=== PATIENT | female | born 1955 | race Caucasian/White ===

== ENCOUNTER 2021-03-19 15:36 | Emergency (ER) | payer MEDICARE, MEDICAID ==
[2021-03-19] MEDS ORDERED: Ondansetron 4 MG Tab.DIS PO ONE (15:37)
[2021-03-19] MEDS ORDERED: Sodium Chloride 0.9% 1,000 ML IV ONE (15:53)
[2021-03-19] MEDS ORDERED: Potassium Chloride 20 MEQ Tab.ER PO ONE (15:53)
--- NOTE | 2021-03-19 17:21 | EDM.PDOC ---
ED HPI GENERAL MEDICAL PROBLEM - General Chief Complaint: Gastrointestinal Problem Stated Complaint: nausea vomiting Time Seen by Provider: 03/19/21 15:50 Source of Information: Reports: Patient History Limitations: Reports: No Limitations - History of Present Illness INITIAL COMMENTS - FREE TEXT/NARRATIVE: c/o N pt states she has had Crohn's for years, usually has 2 flares per yr that resolve on their own without meds, gets colonoscopy q3y, next due 09/[address] Goff had N today, no V, no f/c/d, no abd cramping went to walk-in and then sent here for further evaluation N gone after antemetic IM at walk-in, declined additional N meds here pt given 1 liter NS here, said she felt well w/u neg, ESR and CRP unremarkable inc'd WBC/segs of uncertain etiology abd quite soft u/a with stool present, will try to get a 2nd clean catch specimen has a large ventral hernia x 20y, has not wanted repair - Related Data Home Meds: Home Meds Ciprofloxacin [Ciprofloxacin HCl] 250 mg PO BID #14 tab 03/19/21 [Rx] ED ROS GENERAL - Review of Systems Review Of Systems: See Below Constitutional: Reports: No Symptoms HEENT: Reports: No Symptoms Respiratory: Reports: No Symptoms Cardiovascular: Reports: No Symptoms Endocrine: Reports: No Symptoms GI/Abdominal: Reports: Nausea. Denies: Abdominal Pain, Constipation, Diarrhea, Vomiting : Reports: No Symptoms Musculoskeletal: Reports: No Symptoms Skin: Reports: No Symptoms Neurological: Reports: No Symptoms Psychiatric: Reports: No Symptoms Hematologic/Lymphatic: Reports: No Symptoms Immunologic: Reports: No Symptoms ED EXAM, GI/ABD - Physical Exam Exam: See Below Exam Limited By: No Limitations General Appearance: Alert, WD/WN, No Apparent Distress Ears: Hearing Grossly Normal Nose: Normal Inspection Throat/Mouth: Normal Inspection, Normal Voice, No Airway Compromise Head: Atraumatic, Normocephalic Neck: Normal Inspection, Supple, Non-Tender, Full Range of Motion. No: Lymphadenopathy (R), Lymphadenopathy (L) Respiratory/Chest: No Respiratory Distress, Lungs Clear, Normal Breath Sounds, Chest Non-Tender Cardiovascular: Regular Rate, Rhythm, No Edema, No Murmur GI/Abdominal Exam: Normal Bowel Sounds, Soft, Non-Tender, No Organomegaly, No Distention, Other (large vental hernia inferior and central, soft, NT) Back Exam: Normal Inspection, Full Range of Motion. No: CVA Tenderness (R), CVA Tenderness (L) Extremities: Normal Inspection, Normal Range of Motion, Non-Tender, No Pedal Edema Neurological: Alert, Oriented, CN II-XII Intact, Normal Cognition, No Motor/Sensory Deficits Psychiatric: Normal Affect Skin Exam: Warm, Dry, Intact, Normal Color, No Rash Lymphatic: No Adenopathy Course - Orders/Labs/Meds Orders: Active Orders 24 hr Category Date Time Status CULTURE URINE [RM] Stat Lab 03/19/21 18:22 Ordered Labs: Laboratory Tests 03/19/21 03/19/21 03/19/21 Range/Units 14:20 14:20 16:35 Magnesium 1.9 (1.8-2.5) mg/dL C-Reactive Protein 1.0 H (0.5-0.9) mg/dL Urine Color Yellow (YELLOW) Urine Appearance Turbid (CLEAR) Urine pH 8.0 H (5.0-6.5) Ur Specific [place] 1.010 (1.010-1.025) Urine Protein Negative (NEGATIVE) mg/dL Urine Glucose (UA) Normal (NORMAL) mg/dL Urine Ketones Negative (NEGATIVE) mg/dL Urine Occult Blood Large H (NEGATIVE) Urine Nitrite Negative (NEGATIVE) Urine Bilirubin Negative (NEGATIVE) Urine Urobilinogen Normal (NEGATIVE) mg/dL Ur Leukocyte Esterase Large H (NEGATIVE) U Hyaline Cast (Auto) Few H (NS) Urine RBC 20-30 H (0-5) Urine WBC 40-50 H (0-5) Ur Squamous Epith Cells Few H (NS,R,O) Urine Bacteria Many H (NS) Urine Mucus Few H (NS) 03/19/21 Range/Units 17:50 Magnesium (1.8-2.5) mg/dL C-Reactive Protein (0.5-0.9) mg/dL Urine Color Yellow (YELLOW) Urine Appearance Clear (CLEAR) Urine pH 7.0 H (5.0-6.5) Ur Specific [place] 1.010 (1.010-1.025) Urine Protein Negative (NEGATIVE) mg/dL Urine Glucose (UA) Normal (NORMAL) mg/dL Urine Ketones Negative (NEGATIVE) mg/dL Urine Occult Blood Negative (NEGATIVE) Urine Nitrite Negative (NEGATIVE) Urine Bilirubin Negative (NEGATIVE) Urine Urobilinogen Normal (NEGATIVE) mg/dL Ur Leukocyte Esterase Moderate H (NEGATIVE) U Hyaline Cast (Auto) (NS) Urine RBC 0-5 (0-5) Urine WBC 5-10 H (0-5) Ur Squamous Epith Cells Few H (NS,R,O) Urine Bacteria Moderate H (NS) Urine Mucus (NS) Meds: Medications Discontinued Medications Generic Name Dose Route Start Last Admin Trade Name Freq PRN Reason Stop Dose Admin Sodium Chloride 1,000 mls @ 999 mls/hr 03/19/21 15:53 03/19/21 18:18 Normal Saline IV 03/19/21 16:53 Not Given .BOLUS ONE Potassium Chloride 40 meq 03/19/21 15:53 03/19/21 18:15 Potassium Chloride 20 Meq Tab.Er PO 03/19/21 15:54 40 meq ONETIME ONE Administration Potassium Chloride Confirm 03/19/21 18:14 Potassium Chloride 20 Meq Tab.Er Administered 03/19/21 18:15 Dose 40 meq .ROUTE .STK-MED ONE - Re-Assessments/Exams Free Text/Narrative Re-Assessment/Exam: 03/19/21 18:33 repeat u/s positive (1st specimen had stool in it) abd remained quite soft, no indication for imaging the inc/d wbc/crp seemed most c/w UTI no clear evidence of Crohn's was walking and doing well and eager to go home Departure - Departure Time of Disposition: 18:23 Disposition: Home, Self-Care 01 Condition: Good Clinical Impression: Urinary tract infection, Nausea, Hypokalemia, Mild dehydration - Discharge Information *PRESCRIPTION DRUG MONITORING PROGRAM REVIEWED*: Not Applicable *COPY OF PRESCRIPTION DRUG MONITORING REPORT IN PATIENT SOFIA: Not Applicable Prescriptions: Ciprofloxacin [Ciprofloxacin HCl] 250 mg PO BID #14 tab Instructions: Nausea, Adult, Urinary Tract Infection, Adult Referrals: Pricilla Phipps, COMPUTER SYSTEM TECHNICIAN [Primary Care Provider] - Forms: ED Department Discharge Additional Instructions: For infection, take ciprofloxacin 250 mg 1 tab 2 times a day for 7 days. For nausea, take ondansetron ODT 4 mg 1 tab every 6 hours. Increase fluids without caffeine. See your doctor in 3-4 days for further recommendations. Return to Emergency Department if you are feeling worse. - My Orders Last 24 Hours: My Active Orders 03/19/21 18:22 CULTURE URINE [RM] Stat - Assessment/Plan Last 24 Hours: My Active Orders 03/19/21 18:22 CULTURE URINE [] Stat
[2021-03-19] MEDS ORDERED: Potassium Chloride 20 MEQ Tab.ER ONE (18:14)
[2021-03-19] MEDS ORDERED: Ciprofloxacin 250 MG Tab PO ONE (18:25)
== END 2021-03-19 19:00 | disposition home or self-care (01) ==
LOC: FB.ED 15:36
DX: N39.0 Urinary tract infection, site not specified (principal); E86.0 Dehydration; E87.6 Hypokalemia
CPT/HCPCS: 36415; 81001; 83735; 86140; 87086; 87088; 87186; 99283; A9270-GY

== ENCOUNTER 2021-05-04 08:51 | Emergency (ER) | payer MEDICARE, MEDICAID ==
[2021-05-04] MEDS ORDERED: Sodium Chloride 0.9% 10 ML Syringe FLUSH PRN (09:37)
[2021-05-04] MEDS ORDERED: Sodium Chloride 0.9% 500 ML IV ONE (09:37)
[2021-05-04] MEDS ORDERED: Ondansetron 4 MG/2 ML SDV IVPUSH ONE (09:39)
--- NOTE | 2021-05-04 10:08 | EDM.PDOC ---
ED HPI GENERAL MEDICAL PROBLEM - General Chief Complaint: Abdominal Pain Stated Complaint: THROWING UP/STOMACH CRAMPS Time Seen by Provider: 05/04/21 10:12 Source of Information: Reports: Patient History Limitations: Reports: No Limitations - History of Present Illness INITIAL COMMENTS - FREE TEXT/NARRATIVE: Presents with intermittent crampy low abdominal pain with N/V since 0500 today. Patient had a small BM this am. Has h/o Crohn's disease with bowel resection in 1990. Had similar symptoms in the past secondary to UTI. Denies urinary complaints. Onset Date: 05/04/21 Onset Time: 05:00 Location: Reports: Abdomen Severity: Moderate Lower Abdomen Pain Score (Numeric/FACES): 7 - Related Data Allergies Allergy/AdvReac Type Severity Reaction Status Date / Time No Known Allergies Allergy Verified 05/04/21 09:52 Home Meds: Home Meds Albuterol Sulfate [Albuterol Sulfate Hfa] 18 gm IH 05/04/21 [History] Benzonatate 100 mg PO 05/04/21 [History] Betamethasone Valerate 15 gm TP 05/04/21 [History] Budesonide/Formoterol Fumarate [Symbicort 160-4.5 Mcg Inhaler] 80 mcg BID 05/04/21 [History] Calcium Phosphate Trib/Vit D3 [Calcium-Vitamin D3 Gummies] 1 each PO 05/04/21 [ History] Cyanocobalamin (Vitamin B-12) [Vitamin B-12] 1,000 mcg PO 05/04/21 [History] Famotidine 20 mg DAILY 05/04/21 [History] Losartan/Hydrochlorothiazide [Hyzaar 100-25 Tablet] 100 mg DAILY 05/04/21 [History] Potassium Chloride [Klor-Con M20] 20 meq PO 05/04/21 [History] Past Medical History Cardiovascular History: Reports: Hypertension Respiratory History: Reports: Asthma Gastrointestinal History: Reports: Inflammatory Bowel Disease (Crohn's) Genitourinary History: Reports: UTI, Recurrent - Past Surgical History GI Surgical History: Reports: Hernia, Abdominal Social & Family History - Family History Family Medical History: No Pertinent Family History - Tobacco Use Tobacco Use Status *Q: Never Tobacco User Second Hand Smoke Exposure: No - Recreational Drug Use Recreational Drug Use: No ED ROS GENERAL - Review of Systems Review Of Systems: Comprehensive ROS is negative, except as noted in HPI. ED EXAM, GI/ABD - Physical Exam Exam: See Below Exam Limited By: No Limitations General Appearance: Alert, WD/WN, No Apparent Distress Nose: Normal Inspection Throat/Mouth: Normal Voice, No Airway Compromise Head: Atraumatic, Normocephalic Neck: Full Range of Motion Respiratory/Chest: No Respiratory Distress, Lungs Clear, Normal Breath Sounds Cardiovascular: Regular Rate, Rhythm, No Murmur GI/Abdominal Exam: Normal Bowel Sounds, Soft, No Distention, Tender (mild lower abdominal tenderness), Mass (ventral, non tender, not reducible) Back Exam: Full Range of Motion Extremities: Normal Range of Motion Neurological: Alert, Normal Cognition Psychiatric: Normal Affect, Normal Mood Skin Exam: Warm, Dry, Intact Course - Vital Signs Last Recorded V/S: Last Vital Signs Temp 36.8 C 05/04/21 10:30 Pulse 80 05/04/21 10:30 Resp 18 05/04/21 10:30 BP 160/79 H 05/04/21 10:30 Pulse Ox 92 L 05/04/21 10:30 - Orders/Labs/Meds Orders: Active Orders 24 hr Category Date Time Status Abdomen Pelvis w Cont [CT] Stat Exams 05/04/21 10:19 Taken Sodium Chloride 0.9% [Saline Flush] Med 05/04/21 09:37 Active 10 ml FLUSH ASDIRECTED PRN NG [Nasogastric Orogastric Tube Insertion] [OM.PC] Stat Oth 05/04/21 11:49 Ordered Saline Lock Insert [OM.PC] Routine Oth 05/04/21 09:37 Ordered Medication Orders Sodium Chloride (Sodium Chloride 0.9% 10 Ml Syringe) 10 ml FLUSH ASDIRECTED PRN PRN Reason: Keep Vein Open Last Admin: 05/04/21 10:15 Dose: 10 ml Documented by: SAMINA Labs: Laboratory Tests 05/04/21 05/04/21 05/04/21 Range/Units 09:50 09:50 11:10 WBC 10.7 H (3.0-10.3) x10-3/uL RBC 4.74 (3.60-5.20) x10(6)uL Hgb 13.9 (11.4-15.5) g/dL Hct 42.0 (34.2-48.2) % MCV 88.7 (76.7-100.5) fL MCH 29.3 (23.9-33.9) pg MCHC 33.0 (31.9-34.8) g/dL RDW 14.4 (12.3-16.5) % Plt Count 194 (151-488) x10(3)uL MPV 9.2 (7.1-12.4) fL Add Manual Diff Yes Neutrophils % (Manual) 84 H (46-82) % Band Neutrophils % 3 (0-6) % Lymphocytes % (Manual) 10 L (13-37) % Monocytes % (Manual) 3 L (4-12) % Sodium 141 (135-145) mmol/L Potassium 3.5 (3.5-5.3) mmol/L Chloride 100 (100-110) mmol/L Carbon Dioxide 30 (21-32) mmol/L BUN 27 H (7-18) mg/dL Creatinine 0.8 (0.55-1.02) mg/dL Est Cr Clr Drug Dosing 58.93 mL/min Estimated GFR (MDRD) > 60 (>60) BUN/Creatinine Ratio 33.8 H (9-20) Glucose 152 H (80-116) mg/dL Calcium 9.8 (8.6-10.2) mg/dL Total Bilirubin 0.7 (0.1-1.3) mg/dL AST 19 (5-25) IU/L ALT 29 D (12-36) U/L Alkaline Phosphatase 94 (56-112) IU/L Total Protein 7.4 (6.0-8.0) g/dL Albumin 3.6 (3.2-4.6) g/dL Globulin 3.8 g/dL Albumin/Globulin Ratio 1.0 Urine Color Yellow (YELLOW) Urine Appearance Cloudy (CLEAR) Urine pH 8.0 H (5.0-6.5) Ur Specific [place] 1.015 (1.010-1.025) Urine Protein Negative (NEGATIVE) mg/dL Urine Glucose (UA) Normal (NORMAL) mg/dL Urine Ketones Negative (NEGATIVE) mg/dL Urine Occult Blood Negative (NEGATIVE) Urine Nitrite Negative (NEGATIVE) Urine Bilirubin Negative (NEGATIVE) Urine Urobilinogen Normal (NEGATIVE) mg/dL Ur Leukocyte Esterase Moderate H (NEGATIVE) Urine WBC 5-10 H (0-5) Ur Squamous Epith Cells Moderate H (NS,R,O) Amorphous Sediment Many Urine Bacteria Many H (NS) Meds: Medications Generic Name Dose Route Start Last Admin Trade Name Freq PRN Reason Stop Dose Admin Sodium Chloride 10 ml 05/04/21 09:37 05/04/21 10:15 Sodium Chloride 0.9% 10 Ml Syringe FLUSH 10 ml ASDIRECTED PRN Administration Keep Vein Open Discontinued Medications Generic Name Dose Route Start Last Admin Trade Name Freq PRN Reason Stop Dose Admin Sodium Chloride 500 mls @ 500 mls/hr 05/04/21 09:37 05/04/21 10:15 Normal Saline IV 05/04/21 10:36 500 mls/hr .BOLUS ONE Administration Iopamidol 100 ml 05/04/21 10:34 05/04/21 11:00 Iopamidol 755 Mg/Ml 100 Ml Bottle IV 05/04/21 10:35 92 ml . DIRECTED ONE Administration Ondansetron HCl 4 mg 05/04/21 09:39 05/04/21 10:14 Ondansetron 4 Mg/2 Ml Sdv IVPUSH 05/04/21 09:40 4 mg ONETIME ONE Administration Pantoprazole Sodium 40 mg 05/04/21 10:14 05/04/21 10:31 Pantoprazole 40 Mg Vial IVPUSH 05/04/21 10:15 40 mg ONETIME ONE Administration - Radiology Interpretation Free Text/Narrative:: CT Abd/Pelvis w/ IV contrast: Bowel obstruction at site of anastamosis at ileum. Ventral hernia, not causing bowel obstruction. (Verbal report from Dr. Christy) - Re-Assessments/Exams Free Text/Narrative Re-Assessment/Exam: 05/04/21 12:05 [facility] does not have general surgery available today. Dr. Johnson at [facility] accepts patient for transfer, recommends NG tube placement. Departure - Departure Time of Disposition: 12:06 Disposition: DC/Tfer to Acute Hospital 02 Condition: Fair Clinical Impression: Small bowel obstruction - Discharge Information *PRESCRIPTION DRUG MONITORING PROGRAM REVIEWED*: No *COPY OF PRESCRIPTION DRUG MONITORING REPORT IN PATIENT SOFIA: Not Applicable Referrals: Pricilla Phipps, ASSISTANT SHIFT SUPERVISOR [Primary Care Provider] - Forms: ED Department Discharge Sepsis Event Note (ED) - Evaluation Sepsis Screening Result: No Definite Risk - Focused Exam Vital Signs: Vital Signs Temp Pulse Resp BP Pulse Ox 05/04/21 10:30 36.8 C 80 18 160/79 H 92 L 05/04/21 09:30 36.6 C 80 15 205/106 H 95 05/04/21 08:58 36.4 C 80 20 170/100 H 98 - My Orders Last 24 Hours: My Active Orders 05/04/21 09:37 Sodium Chloride 0.9% [Saline Flush] 10 ml FLUSH ASDIRECTED PRN Saline Lock Insert [OM.PC] Routine 05/04/21 10:19 Abdomen Pelvis w Cont [CT] Stat 05/04/21 11:49 NG [Nasogastric Orogastric Tube Insertion] [OM.PC] Stat - Assessment/Plan Last 24 Hours: My Active Orders 05/04/21 09:37 Sodium Chloride 0.9% [Saline Flush] 10 ml FLUSH ASDIRECTED PRN Saline Lock Insert [OM.PC] Routine 05/04/21 10:19 Abdomen Pelvis w Cont [CT] Stat 05/04/21 11:49 NG [Nasogastric Orogastric Tube Insertion] [OM.PC] Stat
[2021-05-04] MEDS ORDERED: Pantoprazole 40 MG Vial IVPUSH ONE (10:14)
[2021-05-04] MEDS ORDERED: Iopamidol 755 Mg/ML 100 ML Bottle IV ONE (10:34)
--- NOTE | 2021-05-04 12:12 | CT ---
INDICATION: Abdominal pain since 5:00 a.m., nausea, cramps and vomiting. CT ABDOMEN AND PELVIS WITH CONTRAST: Spiral 3.75 mm axial sections were obtained through the abdomen and pelvis with 92 mL Isovue-370 at 2 mL/sec, with sagittal and coronal reconstructions 05/04/21 - no comparisons. Total exam DLP was 767.08 milligray/cm. The lower lung bass and pleural spaces visualized showed no definite active infiltrate or effusion. Minimal pleural scarring is again noted at the lung bases mostly on the right. There is also question of some emphysematous change. The heart appears to be at the upper limits of normal in size. There is again noted a ventral hernia which appears to be above the umbilicus and measures 10.5 cm craniocaudad x 8 cm anterior posterior x 16 cm transversely with an ostium which measures 37 mm. Within this large hernia, which is significantly larger than on the previous study of the chest by CT dated 08/05/2008, which measured 99 mm x 48 mm transversely x AP diameter, within this hernia is a long loop of transverse colon. That portion of the bowel does not appear to be obstructed. There is gas and stool in the rectum. However, markedly dilated fluid-filled loops of small bowel are noted with air-fluid levels down to the level of an apparent anastomosis in the upper middle pelvis best seen on axial image 94 and sagittal images 70 through 79. The obstruction appears to be occurring at the anastomosis with more distal small bowel. The obstruction would appear to be either acute and occurring just recently, or partial. The loop of bowel closest to the obstruction measured 5.4 cm and is compatible with a loop of ileum. No other organomegaly was identified. The liver appears normal. The gallbladder is abnormal with cholelithiasis again present and perhaps more prominent than on the previous study. There is some thickening of the wall of the gallbladder which may represent chronic cholecystitis, which is a new finding. Possibility of acute cholecystitis is felt to be less likely but is difficult to entirely exclude. If this is a concern clinically, hepatobiliary nuclear medicine imaging may be helpful. The adrenal glands appeared normal. A tiny low-density lesion is noted in the lower pole of the left kidney most likely representing a simple cyst with a similar slightly larger lesion exophytically off the lower pole of the right kidney. Both of these lesions appear to have been present on the previous study of 2008 with perhaps slight increase in size. There appear to be ureteral jets at the urinary bladder bilaterally. No obstructive uropathy is suggested. The spleen and pancreas appear to be normal. A fixed hiatal hernia is now noted of small size. No retroperitoneal mass was seen. Calcifications are noted in the aorta and minimally at the iliac bifurcation. No additional mass lesions or free fluid collections were identified in the abdomen or pelvis. Sigmoid diverticulosis is noted without evidence of diverticulitis. The appendix was not visualized. The patient gave a questionable history of appendectomy. IMPRESSION: 1. Probable acute small bowel obstruction or at least a significant degree of partial small bowel obstruction at the level of a bowel anastomosis in the upper pelvis and the mid pelvis area. A loop of ileum is dilated at that site to approximately 5.5 cm. No free air was identified. 2. Large ventral hernia with a loop of transverse colon that does not appear to be obstructed. A large ostium is noted. Significant increase in size of this hernia is noted compared with the previous study of 2007. 3. ASD. 4. Cholelithiasis more prominent than on the previous study with some thickening of the wall of the gallbladder suggesting at least chronic cholecystitis. This should be correlated clinically as to the need for hepatobiliary imaging to exclude acute cholecystitis. 5. Minimal probable cystic changes at the inferior poles of the kidneys. 6. Sigmoid diverticulosis without evidence of diverticulitis. 7. Small fixed hiatal hernia, a new finding compared with 2008. 8. Heart appears to be at the upper limits of normal in size. 9. Minimal pleural scarring at the lung bases and possible COPD. Report was given to Dr. Marin by phone at 1128 hours. [facility]
[2021-05-04] MEDS ORDERED: D5 1/2 NS w/ 20 mEq/L KCl 1,000 ML IV SCH (12:30)
--- NOTE | 2021-05-04 14:11 | CR ---
INDICATION: NG tube placement. NG TUBE PLACEMENT - CHEST/ABDOMEN X-RAY: A single frontal view of the lower chest and upper abdomen revealed a nasogastric tube in place with its tip in the area of the proximal gastric body. It could be advanced several centimeters for slightly better positioning. No definite free air is noted under the hemidiaphragm leaves. MTDD
== END 2021-05-04 12:52 ==
LOC: FB.ED 08:51
DX: K56.609 Unspecified intestinal obstruction, unspecified as to partial versus complete obstruction (principal); I10 Essential (primary) hypertension; Z79.899 Other long term (current) drug therapy
CPT/HCPCS: 36415; 43752; 74018; 74177; 80053; 81001; 85025; 96374; 96375; 99285; C9113; J2405; J3480; J7040; Q9967

== ENCOUNTER 2021-06-29 11:11 | Inpatient (IN) | payer MEDICARE, MEDICAID ==
[2021-06-29] MEDS ORDERED: Sodium Chloride 0.9% 10 ML Syringe FLUSH PRN (11:39)
[2021-06-29] MEDS ORDERED: Ondansetron 4 MG/2 ML SDV IVPUSH STA (11:40)
[2021-06-29] MEDS ORDERED: Sodium Chloride 0.9% 1,000 ML IV SCH (11:45)
--- NOTE | 2021-06-29 11:59 | EDM.PDOC ---
ED HPI GENERAL MEDICAL PROBLEM - General Stated Complaint: THROWING UP,LOOSE BM Time Seen by Provider: 06/29/21 11:15 Source of Information: Reports: Patient History Limitations: Reports: No Limitations - History of Present Illness INITIAL COMMENTS - FREE TEXT/NARRATIVE: Patient presented to the ED because of N?V?D which started at 6-7 am today. There is associated squeezing pain,6/10. She vomited 3-4 times. There is no associated fever, chills, cough or cold symptoms. She has a history of Chron's dse and on April this year she was hospitalized at [facility] because of SBO. Abdomen Pain Score (Numeric/FACES): 4 - Related Data Allergies Allergy/AdvReac Type Severity Reaction Status Date / Time No Known Allergies Allergy Verified 05/04/21 09:52 Home Meds: Home Meds Albuterol Sulfate [Albuterol Sulfate Hfa] 2 puff IH Q4HR PRN 05/04/21 [History] Betamethasone Valerate 1 applic TP BID 05/04/21 [History] Budesonide/Formoterol Fumarate [Symbicort 160-4.5 Mcg Inhaler] 2 puff IH BID 05/04/21 [History] Calcium Phosphate Trib/Vit D3 [Calcium-Vitamin D3 Gummies] 1 each PO DAILY 05/04/21 [History] Cyanocobalamin (Vitamin B-12) [Vitamin B-12] 1,000 mcg SL DAILY 05/04/21 [History] Famotidine 20 mg DAILY 05/04/21 [History] Losartan/Hydrochlorothiazide [Hyzaar 100-25 Tablet] 1 tab PO DAILY 05/04/21 [History] Potassium Chloride [Klor-Con M20] 20 meq PO BID 05/04/21 [History] Cholecalciferol (Vitamin D3) [Vitamin D3] 25 mcg CHEW DAILY 06/29/21 [History] Magnesium Oxide [Magnesium] 400 mg PO DAILY 06/29/21 [History] Multivitamin with Minerals [Multiple Vitamin] 2 tab PO DAILY 06/29/21 [History] Past Medical History Cardiovascular History: Reports: Hypertension Respiratory History: Reports: Asthma, COPD Gastrointestinal History: Reports: Inflammatory Bowel Disease Genitourinary History: Reports: UTI, Recurrent Endocrine/Metabolic History: Reports: Hypokalemia Hematologic History: Reports: B12 Deficiency - Past Surgical History GI Surgical History: Reports: Hernia, Abdominal Social & Family History - Family History Family Medical History: No Pertinent Family History ED ROS GENERAL - Review of Systems Review Of Systems: See Below Constitutional: Reports: No Symptoms HEENT: Reports: No Symptoms Respiratory: Reports: No Symptoms Cardiovascular: Reports: No Symptoms Endocrine: Reports: No Symptoms GI/Abdominal: Reports: Abdominal Pain, Diarrhea, Nausea, Vomiting : Reports: No Symptoms, Discharge Musculoskeletal: Reports: No Symptoms, Neck Pain Skin: Reports: No Symptoms Neurological: Reports: No Symptoms Psychiatric: Reports: No Symptoms ED EXAM, GI/ABD - Physical Exam Exam: See Below Exam Limited By: No Limitations General Appearance: Alert, No Apparent Distress Ears: Normal External Exam, Normal Canal Nose: Normal Inspection, Normal Mucosa, No Blood Throat/Mouth: Normal Inspection, Normal Lips, Normal Teeth Head: Atraumatic, Normocephalic Neck: Normal Inspection, Supple, Non-Tender, Full Range of Motion Respiratory/Chest: No Respiratory Distress, Lungs Clear, Normal Breath Sounds, N o Accessory Muscle Use, Chest Non-Tender Cardiovascular: Normal Peripheral Pulses, Regular Rate, Rhythm, No Edema, No Gallop, No JVD, No Murmur, No Rub GI/Abdominal Exam: Normal Bowel Sounds, Soft, No Organomegaly, No Distention, No Abnormal Bruit, Other (diffusely tender) Back Exam: Normal Inspection, Full Range of Motion Extremities: Normal Inspection, Normal Range of Motion, Non-Tender Neurological: Alert, Oriented, CN II-XII Intact, Normal Cognition, Normal Reflexes, No Motor/Sensory Deficits Psychiatric: Normal Affect Course - Vital Signs Text/Narrative:: Lab/CT abd-pelvis result was reviewed and discussed with patient NS 1 L bolus Zofran 4 mg IV x1 Covid test-pending Last Recorded V/S: Last Vital Signs Temp 36.5 C 06/29/21 11:11 Pulse 103 H 06/29/21 11:11 Resp 18 06/29/21 11:11 BP 142/83 H 06/29/21 11:11 Pulse Ox 96 06/29/21 11:11 - Orders/Labs/Meds Orders: Active Orders 24 hr Category Date Time Status CORONAVIRUS COVID-19 DIMITRIS [MOLEC] Stat Lab 06/29/21 13:54 Ordered UA W/MICROSCOPIC [URIN] Stat Lab 06/29/21 11:39 Ordered Sodium Chloride 0.9% [Normal Saline] 1,000 ml Med 06/29/21 11:45 Active IV ASDIRECTED Sodium Chloride 0.9% [Normal Saline] 1,000 ml Med 06/29/21 13:20 Active IV ASDIRECTED Sodium Chloride 0.9% [Saline Flush] Med 06/29/21 11:39 Active 10 ml FLUSH ASDIRECTED PRN Saline Lock Insert [OM.PC] Routine Oth 06/29/21 11:39 Ordered Medication Orders Sodium Chloride (Normal Saline) 1,000 mls @ 999 mls/hr IV ASDIRECTED PHIL Last Admin: 06/29/21 12:05 Dose: 999 mls/hr Documented by: CAYETANO Sodium Chloride (Normal Saline) 1,000 mls @ 125 mls/hr IV ASDIRECTED PHIL Last Admin: 06/29/21 13:26 Dose: 125 mls/hr Documented by: ROCAEL Sodium Chloride (Sodium Chloride 0.9% 10 Ml Syringe) 10 ml FLUSH ASDIRECTED PRN PRN Reason: Keep Vein Open Labs: Laboratory Tests 06/29/21 06/29/21 06/29/21 Range/Units 11:50 11:50 11:50 WBC 14.5 H (3.0-10.3) x10-3/uL RBC 4.90 (3.60-5.20) x10(6)uL Hgb 14.0 (11.4-15.5) g/dL Hct 43.1 (34.2-48.2) % MCV 88.0 (76.7-100.5) fL MCH 28.5 (23.9-33.9) pg MCHC 32.4 (31.9-34.8) g/dL RDW 14.8 (12.3-16.5) % Plt Count 227 (151-488) x10(3)uL MPV 8.6 (7.1-12.4) fL Add Manual Diff Yes Neutrophils % (Manual) 78 (46-82) % Band Neutrophils % 6 (0-6) % Lymphocytes % (Manual) 10 L (13-37) % Monocytes % (Manual) 6 (4-12) % Sodium 141 (135-145) mmol/L Potassium 3.5 (3.5-5.3) mmol/L Chloride 102 (100-110) mmol/L Carbon Dioxide 29 (21-32) mmol/L BUN 24 H (7-18) mg/dL Creatinine 0.8 (0.55-1.02) mg/dL Est Cr Clr Drug Dosing TNP Estimated GFR (MDRD) > 60 (>60) BUN/Creatinine Ratio 30.0 H (9-20) Glucose 138 H (80-116) mg/dL Calcium 9.3 (8.6-10.2) mg/dL Total Bilirubin 0.7 (0.1-1.3) mg/dL AST 17 D (5-25) IU/L ALT 27 (12-36) U/L Alkaline Phosphatase 93 (56-112) IU/L Total Protein 7.3 (6.0-8.0) g/dL Albumin 3.6 (3.2-4.6) g/dL Globulin 3.7 g/dL Albumin/Globulin Ratio 1.0 Amylase 55 (25-115) U/L Lipase 111 (73-393) U/L Meds: Medications Generic Name Dose Route Start Last Admin Trade Name Freq PRN Reason Stop Dose Admin Sodium Chloride 1,000 mls @ 999 mls/hr 06/29/21 11:45 06/29/21 12:05 Normal Saline IV 999 mls/hr ASDIRECTED PHIL Administration Sodium Chloride 1,000 mls @ 125 mls/hr 06/29/21 13:20 06/29/21 13:26 Normal Saline IV 125 mls/hr ASDIRECTED PHIL Administration Sodium Chloride 10 ml 06/29/21 11:39 Sodium Chloride 0.9% 10 Ml Syringe FLUSH ASDIRECTED PRN Keep Vein Open Discontinued Medications Generic Name Dose Route Start Last Admin Trade Name Freq PRN Reason Stop Dose Admin Iopamidol 75 ml 06/29/21 12:17 06/29/21 12:33 Iopamidol 755 Mg/Ml 75 Ml Bottle IV 06/29/21 12:18 75 ml ONETIME ONE Administration Ondansetron HCl 4 mg 06/29/21 11:40 06/29/21 11:58 Ondansetron 4 Mg/2 Ml Sdv IVPUSH 06/29/21 11:41 4 mg NOW STA Administration Departure - Departure Time of Disposition: 13:00 Disposition: Admitted As Inpatient 65 Condition: Good Clinical Impression: Bowel obstruction, Nausea vomiting and diarrhea - Discharge Information Referrals: Pricilla Phipps, [employer] [Primary Care Provider] - Sepsis Event Note (ED) - Focused Exam Vital Signs: Vital Signs Temp Pulse Resp BP Pulse Ox 06/29/21 11:11 36.5 C 103 H 18 142/83 H 96 - My Orders Last 24 Hours: My Active Orders 06/29/21 11:39 UA W/MICROSCOPIC [URIN] Stat Sodium Chloride 0.9% [Saline Flush] 10 ml FLUSH ASDIRECTED PRN Saline Lock Insert [OM.PC] Routine 06/29/21 11:45 Sodium Chloride 0.9% [Normal Saline] 1,000 ml IV ASDIRECTED 06/29/21 13:20 Sodium Chloride 0.9% [Normal Saline] 1,000 ml IV ASDIRECTED 06/29/21 13:54 CORONAVIRUS COVID-19 DIMITRIS [MOLEC] Stat - Assessment/Plan Last 24 Hours: My Active Orders 06/29/21 11:39 UA W/MICROSCOPIC [URIN] Stat Sodium Chloride 0.9% [Saline Flush] 10 ml FLUSH ASDIRECTED PRN Saline Lock Insert [OM.PC] Routine 06/29/21 11:45 Sodium Chloride 0.9% [Normal Saline] 1,000 ml IV ASDIRECTED 06/29/21 13:20 Sodium Chloride 0.9% [Normal Saline] 1,000 ml IV ASDIRECTED 06/29/21 13:54 CORONAVIRUS COVID-19 DIMITRIS [MOLEC] Stat
[2021-06-29] MEDS ORDERED: Iopamidol 755 Mg/ML 75 ML Bottle IV ONE (12:17)
[2021-06-29] MEDS: Sodium Chloride 0.9% 1,000 ML IV SCH ×2 (13:26→22:52)
--- NOTE | 2021-06-29 13:38 | CT ---
INDICATION: Diffuse abdominal pain. CT ABDOMEN AND PELVIS WITH IV CONTRAST: Spiral 3.75 mm axial sections were obtained through the abdomen and pelvis with 75 mL of Isovue-370 at 2 mL/sec with sagittal and coronal reconstructions 06/29/21 and compared with 05/04/21. Total exam DLP was 590.55 milligray-cm. The heart appears to be at upper limits of normal in size. Pericardium is very slightly thickened. The lower lung bass and pleural spaces visualized showed no evidence of a definite consolidating pneumonia or effusion. However, there is suggestion of emphysematous changes and possibly some congestion. The liver appears normal. Cholelithiasis is again noted and is prominent with large calcified calculi and thickened wall of the gallbladder that has increased in its thickening compatible with a chronic cholecystitis at the least. This should be correlated clinically. The spleen and pancreas appeared normal. The adrenal glands were unremarkable. The right kidney again shows evidence of a low-density lesion that is unchanged compatible with a simple cyst. A much tinier simple cyst is suggested at the lower pole of the left kidney which was otherwise unremarkable. No retroperitoneal mass was seen. There is a surgical site in the right lower quadrant compatible with bowel resection and anastomosis. Somewhat dilated loops of jejunum and very proximal ileum are noted prior to the anastomosis of questionable significance but possibly related to minimally obstructing process in that area. The bowel apparently distal to that anastomosis appeared normal in caliber. Gas is noted with some stool in the colon. Fluid is also noted in the colon. This appearance raises question of a process such as gastroenteritis. There is again noted a large ventral hernia just above the umbilicus which includes a large loop of transverse colon which does not appear to be obstructed. A large opening is noted into the abdomen. No additional mass lesions, organomegaly or free fluid collections were identified in the abdomen or pelvis. There is a mild degree of sigmoid diverticulosis without definite diverticulitis. IMPRESSION: 1. Dilated loops of small bowel - distal ileum and jejunum up to a level of an anastomosis in the right lower quadrant compatible with a partially obstructing process in that area since there is fluid and gas in the colon. 2. Appendix is not visualized as previously. 3. Cholelithiasis. 4. Large ventral hernia with a loop of transverse colon unchanged in appearance compared with the previous study. 5. ASD with arterial calcifications noted. 6. Minimal cystic changes at the inferior poles of the kidneys. 7. Sigmoid diverticulosis and no definite diverticulitis. 8. No definite fixed hiatal hernia seen at this time. 9. Heart mildly prominent as well as the pericardium. Report was called to Dr. Tsai at 1252 hours 06/29/21. [facility]
[2021-06-29] MEDS ORDERED: Ondansetron 4 MG/2 ML SDV IVPUSH PRN (15:57)
[2021-06-29] MEDS ORDERED: Morphine 2 MG/ML SYRINGE IVPUSH PRN (15:57)
[2021-06-29] MEDS ORDERED: Ketorolac 30 MG/ML SDV IVPUSH PRN (15:57)
[2021-06-29] MEDS ORDERED: Acetaminophen 650 MG Supp RECTAL PRN (16:02)
[2021-06-29] MEDS: Famotidine/Normal Saline 20 MG in Premix Bag 1 BAG IV SCH (16:17)
[2021-06-29] MEDS: Potassium Chloride 100 ML IV SCH (16:44)
--- NOTE | 2021-06-29 17:24 | PCM.HP.2 ---
H&P History of Present Illness - General Date of Service: 06/29/21 Admit Problem/Dx: Admission Diagnosis/Problem Admission Diagnosis/Problem Small bowel obstruction Source of Information: Patient, Provider History Limitations: Reports: No Limitations - History of Present Illness Initial Comments - Free Text/Narative: Belinda started having nausea, vomiting, diarrhea and abdominal pain around 6-7 am this morning. She was nauseous first, started vomiting and then was vomiting and having diarrhea. States she has 3-4 emesis and 2-3 diarrhea stools. She was treated for small bowel obstruction in April at [facility], did not require surgery, just had NG in for few days then was discharged home on May 06. Stated she was on Augmentin a few weeks ago for a respiratory illness. She stated it was liquid brown stool. She has history of Crohn's disease, had partial colectomy but no colostomy. She has large ventral hernia but does not want it fixed, has not had issues with it. Denies any fevers, chills, sore throat, shortness of breath, dysuria, frequency or hematuria. no rashes. She does have varicose veins/spider veins. Up to date on vaccinations. History of indigestion, hypertension and asthma. She did not take any of her medications or supplements today. In ER: WBC 14.5 Hgb 14.0, K 3.5, Cr 0.8, BUN 24; Covid negative. CT abdomen/pelvis showed partial small bowel obstruction. Zofran given in ER. No pain medications required. She has not had any diarrhea stool since arrival to ER. Abdomen Pain Score (Numeric/FACES): 4 - Related Data Allergies/Adverse Reactions: Allergies Allergy/AdvReac Type Severity Reaction Status Date / Time No Known Allergies Allergy Verified 06/29/21 16:37 Home Medications: Home Meds Albuterol Sulfate [Albuterol Sulfate Hfa] 2 puff IH Q4HR PRN 05/04/21 [History] Calcium Phosphate Trib/Vit D3 [Calcium-Vitamin D3 Gummies] 1 each PO DAILY 05/04/21 [History] Cyanocobalamin (Vitamin B-12) [Vitamin B-12] 1,000 mcg SL DAILY 05/04/21 [History] Famotidine 20 mg PO DAILY 05/04/21 [History] RX: Betamethasone Valerate 1 applic TP BID 05/04/21 [History] RX: Losartan/Hydrochlorothiazide [Hyzaar 100-25 Tablet] 1 tab PO DAILY 05/04/21 [History] Budesonide/Formoterol [Symbicort 80-4.5 MCG] 2 puff IH BID 06/29/21 [History] Cholecalciferol (Vitamin D3) [Vitamin D3] 25 mcg CHEW DAILY 06/29/21 [History] Multivitamin with Minerals [Multiple Vitamin] 2 tab PO DAILY 06/29/21 [History] RX: Magnesium Oxide [Magnesium] 400 mg PO DAILY 06/29/21 [History] RX: Potassium Chloride 20 meq PO BID 06/29/21 [History] Past Medical History HEENT History: Reports: Impaired Vision Cardiovascular History: Reports: Hypertension Respiratory History: Reports: Asthma, COPD Gastrointestinal History: Reports: GERD, Inflammatory Bowel Disease, Other (See Below) Other Gastrointestinal History: Ventral hernia Genitourinary History: Reports: UTI, Recurrent Endocrine/Metabolic History: Reports: Hypokalemia, Obesity/BMI 30+ Hematologic History: Reports: B12 Deficiency - Past Surgical History GI Surgical History: Reports: Other (See Below) Other GI Surgeries/Procedures: removal of bowel 1993, ventral hernia Social & Family History - Family History Family Medical History: No Pertinent Family History - Tobacco Use Tobacco Use Status *Q: Never Tobacco User - Caffeine Use Caffeine Use: Reports: None - Recreational Drug Use Recreational Drug Use: No H&P Review of Systems - Review of Systems: Review Of Systems: Comprehensive ROS is negative, except as noted in HPI. Exam - Exam Exam: See Below - Vital Signs Vital Signs: Last Vital Signs Temp 98.1 F 06/29/21 15:50 Pulse 88 06/29/21 15:50 Resp 16 06/29/21 15:50 BP 148/77 H 06/29/21 15:50 Pulse Ox 99 06/29/21 15:57 Weight: 180 lb 6.4 oz - Exam General: Alert, Oriented, Cooperative. No: Mild Distress HEENT: PERRLA, Conjunctiva Clear, EOMI, Hearing Intact, Mucosa Moist & [place]: Supple, Trachea Midline Lungs: Clear to Auscultation, Normal Respiratory Effort Cardiovascular: Regular Rate, Regular Rhythm GI/Abdominal Exam: Normal Bowel Sounds (BUQ), Soft, No Distention, Abnormal Bowel Sounds (hypoactive X 2 BLQ), Hernia (large ventral, BS present), Other (some belching, c/o heartburn). No: Guarding (Female) Exam: Deferred Rectal (Female) Exam: Deferred Back Exam: Normal Inspection Extremities: Normal Capillary Refill, Pedal Edema (nonpitting), Other (spider/varicose veins BLE) Peripheral Pulses: 2+: Radial (L), Radial (R), Dorsalis Pedis (L), Dorsalis Pedis (R) Skin: Warm, Dry, Intact Neurological: Cranial Nerves Intact, Normal Speech, Normal Tone - Patient Data Lab Results Last 24 hrs: Laboratory Results - last 24 hr 06/29/21 06/29/21 06/29/21 Range/Units 11:50 11:50 11:50 WBC 14.5 H (3.0-10.3) x10-3/uL RBC 4.90 (3.60-5.20) x10(6)uL Hgb 14.0 (11.4-15.5) g/dL Hct 43.1 (34.2-48.2) % MCV 88.0 (76.7-100.5) fL MCH 28.5 (23.9-33.9) pg MCHC 32.4 (31.9-34.8) g/dL RDW 14.8 (12.3-16.5) % Plt Count 227 (151-488) x10(3)uL MPV 8.6 (7.1-12.4) fL Add Manual Diff Yes Neutrophils % (Manual) 78 (46-82) % Band Neutrophils % 6 (0-6) % Lymphocytes % (Manual) 10 L (13-37) % Monocytes % (Manual) 6 (4-12) % Sodium 141 (135-145) mmol/L Potassium 3.5 (3.5-5.3) mmol/L Chloride 102 (100-110) mmol/L Carbon Dioxide 29 (21-32) mmol/L BUN 24 H (7-18) mg/dL Creatinine 0.8 (0.55-1.02) mg/dL Est Cr Clr Drug Dosing TNP Estimated GFR (MDRD) > 60 (>60) BUN/Creatinine Ratio 30.0 H (9-20) Glucose 138 H (80-116) mg/dL Calcium 9.3 (8.6-10.2) mg/dL Total Bilirubin 0.7 (0.1-1.3) mg/dL AST 17 D (5-25) IU/L ALT 27 (12-36) U/L Alkaline Phosphatase 93 (56-112) IU/L Total Protein 7.3 (6.0-8.0) g/dL Albumin 3.6 (3.2-4.6) g/dL Globulin 3.7 g/dL Albumin/Globulin Ratio 1.0 Amylase 55 (25-115) U/L Lipase 111 (73-393) U/L Urine Color (YELLOW) Urine Appearance (CLEAR) Urine pH (5.0-6.5) Ur Specific [place] (1.010-1.025) Urine Protein (NEGATIVE) mg/dL Urine Glucose (UA) (NORMAL) mg/dL Urine Ketones (NEGATIVE) mg/dL Urine Occult Blood (NEGATIVE) Urine Nitrite (NEGATIVE) Urine Bilirubin (NEGATIVE) Urine Urobilinogen (NEGATIVE) mg/dL Ur Leukocyte Esterase (NEGATIVE) Urine RBC (0-5) Urine WBC (0-5) Ur Squamous Epith Cells (NS,R,O) Urine Bacteria (NS) SARS-CoV-2 RNA (DIMITRIS) (NEGATIVE) 06/29/21 06/29/21 Range/Units 14:10 15:20 WBC (3.0-10.3) x10-3/uL RBC (3.60-5.20) x10(6)uL Hgb (11.4-15.5) g/dL Hct (34.2-48.2) % MCV (76.7-100.5) fL MCH (23.9-33.9) pg MCHC (31.9-34.8) g/dL RDW (12.3-16.5) % Plt Count (151-488) x10(3)uL MPV (7.1-12.4) fL Add Manual Diff Neutrophils % (Manual) (46-82) % Band Neutrophils % (0-6) % Lymphocytes % (Manual) (13-37) % Monocytes % (Manual) (4-12) % Sodium (135-145) mmol/L Potassium (3.5-5.3) mmol/L Chloride (100-110) mmol/L Carbon Dioxide (21-32) mmol/L BUN (7-18) mg/dL Creatinine (0.55-1.02) mg/dL Est Cr Clr Drug Dosing Estimated GFR (MDRD) (>60) BUN/Creatinine Ratio (9-20) Glucose (80-116) mg/dL Calcium (8.6-10.2) mg/dL Total Bilirubin (0.1-1.3) mg/dL AST (5-25) IU/L ALT (12-36) U/L Alkaline Phosphatase (56-112) IU/L Total Protein (6.0-8.0) g/dL Albumin (3.2-4.6) g/dL Globulin g/dL Albumin/Globulin Ratio Amylase (25-115) U/L Lipase (73-393) U/L Urine Color Yellow (YELLOW) Urine Appearance Clear (CLEAR) Urine pH 7.0 H (5.0-6.5) Ur Specific [place] 1.010 (1.010-1.025) Urine Protein Negative (NEGATIVE) mg/dL Urine Glucose (UA) Normal (NORMAL) mg/dL Urine Ketones Negative (NEGATIVE) mg/dL Urine Occult Blood Negative (NEGATIVE) Urine Nitrite Negative (NEGATIVE) Urine Bilirubin Negative (NEGATIVE) Urine Urobilinogen Normal (NEGATIVE) mg/dL Ur Leukocyte Esterase Small H (NEGATIVE) Urine RBC 0-5 (0-5) Urine WBC 0-5 (0-5) Ur Squamous Epith Cells Few H (NS,R,O) Urine Bacteria Few H (NS) SARS-CoV-2 RNA (DIMITRIS) Negative (NEGATIVE) Result Diagrams: 06/29/21 11:50 06/29/21 11:50 Sepsis Event Note - Evaluation Sepsis Screening Result: Possible Sepsis Risk - Focused Exam Vital Signs: Vital Signs Temp Pulse Resp BP Pulse Ox Pulse Ox 06/29/21 15:57 99 06/29/21 15:50 98.1 F 88 16 148/77 H 99 06/29/21 15:30 98.0 F 97 20 145/80 H 99 06/29/21 11:11 97.7 F 103 H 18 142/83 H 96 *Q Meaningful Use (ADM) - VTE Risk Assess *Q Each Risk Factor Represents 1 Point: Varicose Veins, Obesity ( BMI > 25 kg/m2) Total Score 1 Point Risk Factors: 2 Each Risk Factor Represents 2 Points: Age 60 - 74 Years Total Score 2 Point Risk Factors: 2 Each Risk Factor Represents 3 Points: None Total Score 3 Point Risk Factors: 0 Each Risk Factor Represents 5 Points: None Total Score 5 Point Risk Factors: 0 Venous Thromboembolism Risk Factor Score *Q: 4 - Problem List (1) Bowel obstruction SNOMED Code(s): 80833276 ICD Code: K56.609 - UNSP INTESTNL OBST, UNSP TO PARTIAL VERSUS COMPLETE OBST Status: Acute Current Visit: Yes Qualifiers: Intestinal obstruction extent: partial (2) Nausea vomiting and diarrhea SNOMED Code(s): 4852260 ICD Code: R11.2 - NAUSEA WITH VOMITING, UNSPECIFIED; R19.7 - DIARRHEA, UNSPECIFIED Status: Acute Current Visit: Yes (3) Crohn's disease SNOMED Code(s): 66722397 ICD Code: K50.90 - CROHN'S DISEASE, UNSPECIFIED, WITHOUT COMPLICATIONS Status: Chronic Current Visit: Yes Problem Details: s/p partial colectomy (4) Asthma SNOMED Code(s): 743689182 ICD Code: J45.909 - UNSPECIFIED ASTHMA, UNCOMPLICATED Status: Chronic Current Visit: Yes (5) Hypertension SNOMED Code(s): 43651445 ICD Code: I10 - ESSENTIAL (PRIMARY) HYPERTENSION Status: Chronic Current Visit: Yes Problem List Initiated/Reviewed/Updated: Yes Orders Last 24hrs: Active Orders 24 hr Category Date Time Status Patient Status [ADT] Routine ADT 06/29/21 15:57 Active Oxygen Therapy [RC] PRN Care 06/29/21 15:57 Active Up ad Sussy [RC] ASDIRECTED Care 06/29/21 15:57 Active Vital Signs [RC] Q4H Care 06/29/21 15:57 Active Nothing per Oral Now Diet [DIET] Diet 06/29/21 Dinner Active BASIC METABOLIC PANEL,BMP [CHEM] Routine Lab 06/30/21 06:00 Ordered C DIFFICILE AG/TOXIN W/REFLEX [RM] Routine Lab 06/29/21 16:01 Ordered Acetaminophen [Tylenol] Med 06/29/21 16:02 Active 650 mg RECTAL Q4H PRN Famotidine/Normal Saline [Famotidine in NS Premix] 20 Med 06/29/21 16:15 Active mg Premix Bag 1 bag IV DAILY Ketorolac [Toradol] Med 06/29/21 15:57 Active 30 mg IVPUSH Q6H PRN Morphine Med 06/29/21 15:57 Active 2 mg IVPUSH Q2H PRN Ondansetron [Zofran] Med 06/29/21 15:57 Active 4 mg IVPUSH Q6H PRN Potassium Chloride [KCl in Water 10 MEQ/100 ML] 100 ml Med 06/29/21 16:00 Active IV DAILY Sodium Chloride 0.9% [Normal Saline] 1,000 ml Med 06/29/21 13:20 Active IV ASDIRECTED JACK Bandage [Elastic Wrap] [OM.PC] Routine Oth 06/29/21 16:39 Ordered Resuscitation Status Routine Resus Stat 06/29/21 15:57 Ordered Medication Orders Acetaminophen (Acetaminophen 650 Mg Supp) 650 mg RECTAL Q4H PRN PRN Reason: Pain (moderate 4-6) Sodium Chloride (Normal Saline) 1,000 mls @ 125 mls/hr IV ASDIRECTED [facility] Last Admin: 06/29/21 13:26 Dose: 125 mls/hr Documented by: DEANAMI Potassium Chloride (Kcl In Water 10 Meq/100 Ml) 100 mls @ 25 mls/hr IV DAILY [facility] Last Admin: 06/29/21 16:44 Dose: 25 mls/hr Documented by: SARI Famotidine 20 mg/ Premix 50 mls @ 200 mls/hr IV DAILY [facility] Last Admin: 06/29/21 16:17 Dose: 200 mls/hr Documented by: SARI Ketorolac Tromethamine (Ketorolac 30 Mg/Ml Sdv) 30 mg IVPUSH Q6H PRN PRN Reason: Pain (moderate 4-6) Morphine Sulfate (Morphine 2 Mg/Ml Syringe) 2 mg IVPUSH Q2H PRN PRN Reason: Pain (severe 7-10) Ondansetron HCl (Ondansetron 4 Mg/2 Ml Sdv) 4 mg IVPUSH Q6H PRN PRN Reason: Nausea/Vomiting Assessment/Plan Comment:: 1. Admit to inpatient status for partial bowel obstruction, hx of Crohn's. 2. Partial SBO: NPO, NS at 125 ml/hr, KCL 10 mEq over 4 hours. Pepcid 20 mg IV now and in am. Oral cares prn. Toradol 30 mg IV q6h as needed. Tylenol 650 mg MD q4h as needed. Morphine 2 mg IV q2h as needed. Repeat labs tomorrow. C. difficile ordered since had Augmentin within the last 30 days. Zofran as needed. 3. Hypertension: BP 148/77, hold Losartan/HCTZ. Monitor and adjust as needed. 4. Asthma: Symbicort bid. Ventolin HFA as needed. 5. Diet: NPO, advance once having bowel movements. 6. Activity: as tolerated. 7. DVT prophylaxis: Lovenox 40 mg SQ daily. JACK wraps during day and off at night. 8. CODE STATUS: FULL. 9. Discharge planning: anticipate 24-48 hours of IV fluids/pain control and bowel rest, once diet advanced & having bowel movements. - Mortality Measure Prognosis:: Good
[2021-06-30] MEDS: Sodium Chloride 0.9% 1,000 ML IV SCH ×2 (07:50→17:34)
[2021-06-30] MEDS ORDERED: Albuterol 8 GM Inhaler INH PRN (08:31)
[2021-06-30] MEDS: Formoterol/Mometasone 100-5 MCG 8.8 GM Inhaler IH SCH ×2 (09:32→21:34)
[2021-06-30] MEDS: Famotidine/Normal Saline 20 MG in Premix Bag 1 BAG IV SCH (09:33)
[2021-06-30] MEDS: Potassium Chloride 100 ML IV SCH (10:10)
--- NOTE | 2021-06-30 16:56 | PCM.PN ---
- General Info Date of Service: 06/30/21 Subjective Update: She is passing gas, no abdominal pain or nausea, vomiting. Would like to try ice chips and sips of water this morning that went well then clear liquids for lunch without pain. No BM yet. Will try soft diet for supper. - Patient Data Vitals - Most Recent: Last Vital Signs Temp 98.1 F 06/30/21 08:00 Pulse 69 06/30/21 08:00 Resp 16 06/30/21 08:00 BP 157/76 H 06/30/21 08:00 Pulse Ox 95 06/30/21 08:00 Weight - Most Recent: 180 lb 12.8 oz I&O - Last 24 Hours: Intake & Output 06/30/21 06/30/21 06/30/21 06:59 14:59 22:59 Intake Total 690 Balance 690 Lab Results Last 24 Hours: Laboratory Results - last 24 hr 06/30/21 06/30/21 Range/Units 07:00 07:00 WBC 4.9 (3.0-10.3) x10-3/uL RBC 3.97 (3.60-5.20) x10(6)uL Hgb 11.4 (11.4-15.5) g/dL Hct 35.0 (34.2-48.2) % MCV 88.1 (76.7-100.5) fL MCH 28.6 (23.9-33.9) pg MCHC 32.5 (31.9-34.8) g/dL RDW 15.0 (12.3-16.5) % Plt Count 167 (151-488) x10(3)uL MPV 8.6 (7.1-12.4) fL Neut % (Auto) 62.4 (30.8-76.2) % Lymph % (Auto) 24.9 (18.4-52.1) % Starke % (Auto) 9.9 (4.4-15.7) % Eos % (Auto) 2.4 (0.6-8.1) % Baso % (Auto) 0.4 (0.2-1.5) % Neut # (Auto) 3.1 (1.5-6.3) x10-3/uL Lymph # (Auto) 1.2 (1.0-4.4) x10-3/uL Starke # (Auto) 0.5 (0.3-1.0) x10-3/uL Eos # (Auto) 0.1 (0.0-0.8) x10-3/uL Baso # (Auto) 0.0 (0.0-0.1) x10-3/uL Sodium 145 (135-145) mmol/L Potassium 3.2 L (3.5-5.3) mmol/L Chloride 110 D (100-110) mmol/L Carbon Dioxide 26 (21-32) mmol/L BUN 16 (7-18) mg/dL Creatinine 0.8 (0.55-1.02) mg/dL Est Cr Clr Drug Dosing 56.45 mL/min Estimated GFR (MDRD) > 60 (>60) BUN/Creatinine Ratio 20.0 (9-20) Glucose 94 (80-116) mg/dL Calcium 7.7 L (8.6-10.2) mg/dL Med Orders - Current: Current Medications Acetaminophen (Acetaminophen 650 Mg Supp) 650 mg RECTAL Q4H PRN PRN Reason: Pain (moderate 4-6) Albuterol (Albuterol 8 Gm Inhaler) 0 gm INH Q4H PRN PRN Reason: Shortness of Breath Sodium Chloride (Normal Saline) 1,000 mls @ 125 mls/hr IV ASDIRECTED [facility] Last Admin: 06/30/21 07:50 Dose: 125 mls/hr Documented by: Potassium Chloride (Kcl In Water 10 Meq/100 Ml) 100 mls @ 25 mls/hr IV DAILY [facility] Last Admin: 06/30/21 10:10 Dose: 25 mls/hr Documented by: Famotidine 20 mg/ Premix 50 mls @ 200 mls/hr IV DAILY [facility] Last Admin: 06/30/21 09:33 Dose: 200 mls/hr Documented by: Ketorolac Tromethamine (Ketorolac 30 Mg/Ml Sdv) 30 mg IVPUSH Q6H PRN PRN Reason: Pain (moderate 4-6) Mometasone Furoate/Formoterol Fumar (Formoterol/Mometasone 100-5 Mcg 8.8 Gm Inhaler) 2 puff IH BID [facility] Last Admin: 06/30/21 09:32 Dose: 2 puff Documented by: Morphine Sulfate (Morphine 2 Mg/Ml Syringe) 2 mg IVPUSH Q2H PRN PRN Reason: Pain (severe 7-10) Ondansetron HCl (Ondansetron 4 Mg/2 Ml Sdv) 4 mg IVPUSH Q6H PRN PRN Reason: Nausea/Vomiting Discontinued Medications Sodium Chloride (Normal Saline) 1,000 mls @ 999 mls/hr IV ASDIRECTED [facility] Last Admin: 06/29/21 12:05 Dose: 999 mls/hr Documented by: Iopamidol (Iopamidol 755 Mg/Ml 75 Ml Bottle) 75 ml IV ONETIME ONE Stop: 06/29/21 12:18 Last Admin: 06/29/21 12:33 Dose: 75 ml Documented by: Ondansetron HCl (Ondansetron 4 Mg/2 Ml Sdv) 4 mg IVPUSH NOW STA Stop: 06/29/21 11:41 Last Admin: 06/29/21 11:58 Dose: 4 mg Documented by: Sodium Chloride (Sodium Chloride 0.9% 10 Ml Syringe) 10 ml FLUSH ASDIRECTED PRN PRN Reason: Keep Vein Open Last Admin: 06/30/21 08:38 Dose: 10 ml Documented by: - Exam General: Alert, Oriented, Cooperative, No Acute Distress Lungs: Clear to Auscultation, Normal Respiratory Effort Cardiovascular: Regular Rate, Regular Rhythm GI/Abdominal Exam: Normal Bowel Sounds, Soft, Non-Tender, No Distention, Hernia (reducible) Extremities: No Pedal Edema - Patient Data Lab Results Last 24 hrs: Laboratory Results - last 24 hr 06/30/21 06/30/21 Range/Units 07:00 07:00 WBC 4.9 (3.0-10.3) x10-3/uL RBC 3.97 (3.60-5.20) x10(6)uL Hgb 11.4 (11.4-15.5) g/dL Hct 35.0 (34.2-48.2) % MCV 88.1 (76.7-100.5) fL MCH 28.6 (23.9-33.9) pg MCHC 32.5 (31.9-34.8) g/dL RDW 15.0 (12.3-16.5) % Plt Count 167 (151-488) x10(3)uL MPV 8.6 (7.1-12.4) fL Neut % (Auto) 62.4 (30.8-76.2) % Lymph % (Auto) 24.9 (18.4-52.1) % Starke % (Auto) 9.9 (4.4-15.7) % Eos % (Auto) 2.4 (0.6-8.1) % Baso % (Auto) 0.4 (0.2-1.5) % Neut # (Auto) 3.1 (1.5-6.3) x10-3/uL Lymph # (Auto) 1.2 (1.0-4.4) x10-3/uL Starke # (Auto) 0.5 (0.3-1.0) x10-3/uL Eos # (Auto) 0.1 (0.0-0.8) x10-3/uL Baso # (Auto) 0.0 (0.0-0.1) x10-3/uL Sodium 145 (135-145) mmol/L Potassium 3.2 L (3.5-5.3) mmol/L Chloride 110 D (100-110) mmol/L Carbon Dioxide 26 (21-32) mmol/L BUN 16 (7-18) mg/dL Creatinine 0.8 (0.55-1.02) mg/dL Est Cr Clr Drug Dosing 56.45 mL/min Estimated GFR (MDRD) > 60 (>60) BUN/Creatinine Ratio 20.0 (9-20) Glucose 94 (80-116) mg/dL Calcium 7.7 L (8.6-10.2) mg/dL Result Diagrams: 06/30/21 07:00 06/30/21 07:00 Sepsis Event Note - Evaluation Sepsis Screening Result: Possible Sepsis Risk - Focused Exam Vital Signs: Vital Signs Temp Pulse Resp BP Pulse Ox 06/30/21 08:00 98.1 F 69 16 157/76 H 95 - Problem List & Annotations (1) Bowel obstruction SNOMED Code(s): 95704253 Code(s): K56.609 - UNSP INTESTNL OBST, UNSP TO PARTIAL VERSUS COMPLETE OBST Status: Acute Current Visit: Yes Qualifiers: Intestinal obstruction extent: partial (2) Nausea vomiting and diarrhea SNOMED Code(s): 3818479 Code(s): R11.2 - NAUSEA WITH VOMITING, UNSPECIFIED; R19.7 - DIARRHEA, UNSPECIFIED Status: Resolved Current Visit: Yes (3) Crohn's disease SNOMED Code(s): 96647251 Code(s): K50.90 - CROHN'S DISEASE, UNSPECIFIED, WITHOUT COMPLICATIONS Status: Chronic Current Visit: Yes Annotation/Comment:: s/p partial colectomy (4) Asthma SNOMED Code(s): 557009517 Code(s): J45.909 - UNSPECIFIED ASTHMA, UNCOMPLICATED Status: Chronic Current Visit: Yes (5) Hypertension SNOMED Code(s): 88706712 Code(s): I10 - ESSENTIAL (PRIMARY) HYPERTENSION Status: Chronic Current Visit: Yes - Problem List Review Problem List Initiated/Reviewed/Updated: Yes - My Orders Last 24 Hours: My Active Orders 06/29/21 15:57 Patient Status [ADT] Routine Oxygen Therapy [RC] 08 Up ad Sussy [RC] ASDIRECTED Vital Signs [RC] 00,04,08,12,16,20 Ketorolac [Toradol] 30 mg IVPUSH Q6H PRN Morphine 2 mg IVPUSH Q2H PRN Ondansetron [Zofran] 4 mg IVPUSH Q6H PRN Resuscitation Status Routine 06/29/21 16:00 Potassium Chloride [KCl in Water 10 MEQ/100 ML] 100 ml IV DAILY 06/29/21 16:02 Acetaminophen [Tylenol] 650 mg RECTAL Q4H PRN 06/29/21 16:15 Famotidine/Normal Saline [Famotidine in NS Premix] 20 mg Premix Bag 1 bag IV DAILY 06/29/21 16:39 JACK Bandage [Elastic Wrap] [OM.PC] Routine 06/30/21 08:31 RT Post Treatment Assessment [RC] Click to Edit Albuterol [Ventolin HFA] 0 gm INH Q4H PRN 06/30/21 09:00 Mometasone/Formoterol [Dulera 100-5 MCG] 2 puff IH BID 06/30/21 Dinner Soft Diet [DIET] - Plan Plan:: 1. Partial SBO: diet advanced as tolerated. NS at 125 ml/hr, Pepcid 20 mg po in am. Toradol 30 mg IV q6h as needed. Tylenol 650 mg po q4h as needed. Morphine 2 mg IV q2h as needed. Repeat labs tomorrow. Has not had diarrhea or a BM so C. Diff cancelled. Zofran as needed. 2. Hypertension: BP 148/77, restart Losartan/HCTZ. Monitor and adjust as needed. 3. Discharge planning: anticipate discharge tomorrow if she is tolerating her diet and has BM/gas.
[2021-06-30] MEDS ORDERED: Acetaminophen 500 MG Tab PO PRN (17:23)
[2021-07-01] MEDS ORDERED: Potassium Chloride 20 MEQ Packet PO SCH (09:00)
[2021-07-01] MEDS ORDERED: Hydrochlorothiazide 25 MG Tab PO SCH (09:00)
[2021-07-01] MEDS ORDERED: Famotidine 20 MG Tab PO SCH (09:00)
[2021-07-01] MEDS ORDERED: Losartan 100 MG Tab PO SCH (09:00)
[2021-07-01] MEDS: Formoterol/Mometasone 100-5 MCG 8.8 GM Inhaler IH SCH (09:07)
--- NOTE | 2021-07-01 14:37 | PCM.DCSUM1 ---
Discharge Summary - Hospital Course HPI Initial Comments: Belinda started having nausea, vomiting, diarrhea and abdominal pain around 6-7 am this morning. She was nauseous first, started vomiting and then was vomiting and having diarrhea. States she has 3-4 emesis and 2-3 diarrhea stools. She was treated for small bowel obstruction in April at [facility], did not require surgery, just had NG in for few days then was discharged home on May 06. Stated she was on Augmentin a few weeks ago for a respiratory illness. She stated it was liquid brown stool. She has history of Crohn's disease, had partial colectomy but no colostomy. She has large ventral hernia but does not want it fixed, has not had issues with it. Denies any fevers, chills, sore throat, shortness of breath, dysuria, frequency or hematuria. no rashes. She does have varicose veins/spider veins. Up to date on vaccinations. History of indigestion, hypertension and asthma. She did not take any of her medications or supplements today. In ER: WBC 14.5 Hgb 14.0, K 3.5, Cr 0.8, BUN 24; Covid negative. CT abdomen/pelvis showed partial small bowel obstruction. Zofran given in ER. No pain medications required. She has not had any diarrhea stool since arrival to ER. Diagnosis: Stroke: No - Discharge Data Discharge Date: 07/01/21 Discharge Disposition: Home, Self-Care 01 Condition: Good - Referral to Home Health Primary Care Physician: Pricilla Phipps, [employer] - Discharge Diagnosis/Problem(s) (1) Bowel obstruction SNOMED Code(s): 12086902 ICD Code: K56.609 - UNSP INTESTNL OBST, UNSP TO PARTIAL VERSUS COMPLETE OBST Status: Resolved Current Visit: Yes Qualifiers: Intestinal obstruction extent: partial (2) Nausea vomiting and diarrhea SNOMED Code(s): 7646581 ICD Code: R11.2 - NAUSEA WITH VOMITING, UNSPECIFIED; R19.7 - DIARRHEA, UNSPECIFIED Status: Resolved Current Visit: Yes (3) Crohn's disease SNOMED Code(s): 32794707 ICD Code: K50.90 - CROHN'S DISEASE, UNSPECIFIED, WITHOUT COMPLICATIONS Status: Chronic Current Visit: Yes Problem Details: s/p partial colectomy (4) Asthma SNOMED Code(s): 281357613 ICD Code: J45.909 - UNSPECIFIED ASTHMA, UNCOMPLICATED Status: Chronic Current Visit: Yes (5) Hypertension SNOMED Code(s): 89148430 ICD Code: I10 - ESSENTIAL (PRIMARY) HYPERTENSION Status: Chronic Current Visit: Yes - Patient Summary/Data Hospital Course: Belinda was admitted for SBO, NPO for bowel rest. Did not require NG placement. No further nausea, vomiting or diarrhea during stay. Her diet was advanced yesterday which she tolerated, was passing gas then had few BM, this morning was soft, pudding consistency. Remained afebrile throughout stay. Her blood pressure was slightly elevated while she was NPO but corrected with stopping IVF and restarted her home medications. Will follow up with Santy Galindo PA-C since Pricilla Phipps was not available to see early next week. - Patient Instructions Diet: Usual Diet as Tolerated Activity: As Tolerated Driving: Do Not Drive Showering/Bathing: May Shower Notify Provider of: Fever, Increased Pain, Nausea and/or Vomiting Other/Special Instructions: Follow up with Santy Galindo PA-C next Monday am for hospital recheck. - Discharge Plan *PRESCRIPTION DRUG MONITORING PROGRAM REVIEWED*: No *COPY OF PRESCRIPTION DRUG MONITORING REPORT IN PATIENT SOFIA: No Home Medications: Home Meds Albuterol Sulfate [Albuterol Sulfate Hfa] 2 puff IH Q4HR PRN 05/04/21 [History] Betamethasone Valerate 1 applic TP BID 05/04/21 [History] Calcium Phosphate Trib/Vit D3 [Calcium-Vitamin D3 Gummies] 1 each PO DAILY 05/04/21 [History] Cyanocobalamin (Vitamin B-12) [Vitamin B-12] 1,000 mcg SL DAILY 05/04/21 [History] Famotidine 20 mg PO DAILY 05/04/21 [History] Losartan/Hydrochlorothiazide [Hyzaar 100-25 Tablet] 1 tab PO DAILY 05/04/21 [History] Budesonide/Formoterol [Symbicort 80-4.5 MCG] 2 puff IH BID 06/29/21 [History] Cholecalciferol (Vitamin D3) [Vitamin D3] 25 mcg CHEW DAILY 06/29/21 [History] Magnesium Oxide [Magnesium] 400 mg PO DAILY 06/29/21 [History] Multivitamin with Minerals [Multiple Vitamin] 2 tab PO DAILY 06/29/21 [History] Potassium Chloride 20 meq PO BID 06/29/21 [History] Patient Handouts: Bowel Obstruction, [id number], Fall Prevention in Hospitals, Adult, Venous Thromboembolism Prevention Forms: ED Department Discharge Referrals: Pricilla Phipps, [employer] [Primary Care Provider] - - Discharge Summary/Plan Comment DC Time >30 min.: No Total # of Minutes for Discharge Time: 15 min - General Info Date of Service: 07/01/21 Subjective Update: Belinda's diet was advanced and she has had no nausea, vomiting or diarrhea. Her stools are soft, pudding consistency but not watery. No fevers or chills. No pain. Would like to go home. Functional Status: Reports: Pain Controlled, Tolerating Diet, Ambulating, Urinating. Denies: New Symptoms - Patient Data Vitals - Most Recent: Last Vital Signs Temp 97.7 F 07/01/21 12:45 Pulse 82 07/01/21 12:45 Resp 18 07/01/21 12:45 BP 164/77 H 07/01/21 12:45 Pulse Ox 95 07/01/21 12:45 Weight - Most Recent: 185 lb 3 oz I&O - Last 24 hours: Intake & Output 06/30/21 07/01/21 07/01/21 22:59 06:59 14:59 Intake Total 937 0 Balance 937 0 Lab Results - Last 24 hrs: Laboratory Results - last 24 hr 07/01/21 07/01/21 Range/Units 06:20 06:20 WBC 5.5 (3.0-10.3) x10-3/uL RBC 4.14 (3.60-5.20) x10(6)uL Hgb 11.8 (11.4-15.5) g/dL Hct 36.5 (34.2-48.2) % MCV 88.3 (76.7-100.5) fL MCH 28.6 (23.9-33.9) pg MCHC 32.3 (31.9-34.8) g/dL RDW 14.7 (12.3-16.5) % Plt Count 177 (151-488) x10(3)uL MPV 8.6 (7.1-12.4) fL Neut % (Auto) 63.4 (30.8-76.2) % Lymph % (Auto) 24.6 (18.4-52.1) % [place] % (Auto) 9.0 (4.4-15.7) % Eos % (Auto) 2.6 (0.6-8.1) % Baso % (Auto) 0.4 (0.2-1.5) % Neut # (Auto) 3.5 (1.5-6.3) x10-3/uL Lymph # (Auto) 1.4 (1.0-4.4) x10-3/uL [place] # (Auto) 0.5 (0.3-1.0) x10-3/uL Eos # (Auto) 0.1 (0.0-0.8) x10-3/uL Baso # (Auto) 0.0 (0.0-0.1) x10-3/uL Sodium 145 (135-145) mmol/L Potassium 3.5 (3.5-5.3) mmol/L Chloride 110 (100-110) mmol/L Carbon Dioxide 26 (21-32) mmol/L BUN 16 (7-18) mg/dL Creatinine 0.7 (0.55-1.02) mg/dL Est Cr Clr Drug Dosing 64.51 mL/min Estimated GFR (MDRD) > 60 (>60) BUN/Creatinine Ratio 22.9 H (9-20) Glucose 105 (80-116) mg/dL Calcium 8.0 L (8.6-10.2) mg/dL Med Orders - Current: Current Medications Acetaminophen (Acetaminophen 500 Mg Tab) 500 mg PO Q6H PRN PRN Reason: Pain Albuterol (Albuterol 8 Gm Inhaler) 0 gm INH Q4H PRN PRN Reason: Shortness of Breath Famotidine (Famotidine 20 Mg Tab) 20 mg PO DAILY [facility] Last Admin: 07/01/21 09:06 Dose: 20 mg Documented by: Hydrochlorothiazide (Hydrochlorothiazide 25 Mg Tab) 25 mg PO DAILY [facility] Last Admin: 07/01/21 09:05 Dose: 25 mg Documented by: Ketorolac Tromethamine (Ketorolac 30 Mg/Ml Sdv) 30 mg IVPUSH Q6H PRN PRN Reason: Pain (moderate 4-6) Losartan Potassium (Losartan 100 Mg Tab) 100 mg PO DAILY [facility] Last Admin: 07/01/21 09:05 Dose: 100 mg Documented by: Mometasone Furoate/Formoterol Fumar (Formoterol/Mometasone 100-5 Mcg 8.8 Gm Inhaler) 2 puff IH BID [facility] Last Admin: 07/01/21 09:07 Dose: 2 puff Documented by: Morphine Sulfate (Morphine 2 Mg/Ml Syringe) 2 mg IVPUSH Q2H PRN PRN Reason: Pain (severe 7-10) Ondansetron HCl (Ondansetron 4 Mg/2 Ml Sdv) 4 mg IVPUSH Q6H PRN PRN Reason: Nausea/Vomiting Potassium Chloride (Potassium Chloride 20 Meq Packet) 20 meq PO BID [facility] Last Admin: 07/01/21 09:06 Dose: 20 meq Documented by: Discontinued Medications Acetaminophen (Acetaminophen 650 Mg Supp) 650 mg RECTAL Q4H PRN PRN Reason: Pain (moderate 4-6) Sodium Chloride (Normal Saline) 1,000 mls @ 999 mls/hr IV ASDIRECTED [facility] Last Admin: 06/29/21 12:05 Dose: 999 mls/hr Documented by: Sodium Chloride (Normal Saline) 1,000 mls @ 125 mls/hr IV ASDIRECTED [facility] Last Admin: 06/30/21 17:34 Dose: 125 mls/hr Documented by: Potassium Chloride (Kcl In Water 10 Meq/100 Ml) 100 mls @ 25 mls/hr IV DAILY [facility] Last Admin: 06/30/21 10:10 Dose: 25 mls/hr Documented by: Famotidine 20 mg/ Premix 50 mls @ 200 mls/hr IV DAILY [facility] Stop: 06/30/21 16:16 Last Admin: 06/30/21 09:33 Dose: 200 mls/hr Documented by: Iopamidol (Iopamidol 755 Mg/Ml 75 Ml Bottle) 75 ml IV ONETIME ONE Stop: 06/29/21 12:18 Last Admin: 06/29/21 12:33 Dose: 75 ml Documented by: Ondansetron HCl (Ondansetron 4 Mg/2 Ml Sdv) 4 mg IVPUSH NOW STA Stop: 06/29/21 11:41 Last Admin: 06/29/21 11:58 Dose: 4 mg Documented by: Sodium Chloride (Sodium Chloride 0.9% 10 Ml Syringe) 10 ml FLUSH ASDIRECTED PRN PRN Reason: Keep Vein Open Last Admin: 06/30/21 08:38 Dose: 10 ml Documented by: - Exam General: Reports: Alert, Oriented, Cooperative, No Acute Distress Lungs: Reports: Clear to Auscultation Cardiovascular: Reports: Regular Rate, Regular Rhythm GI/Abdominal Exam: Normal Bowel Sounds, Soft, Non-Tender, No Distention, Hernia (reducible, BS present)
== END 2021-07-01 14:20 | disposition home or self-care (01) | DRG 389 ==
LOC: FB.ED 11:11 → SUPCPDRO 11:11 → FB.MS 14:15
PROVIDERS: ADMIT Family Medicine; ATTEND Family Medicine
DX: K56.609 Unspecified intestinal obstruction, unspecified as to partial versus complete obstruction (principal); R11.2 Nausea with vomiting, unspecified; R19.7 Diarrhea, unspecified; K58.9 Irritable bowel syndrome, unspecified; K56.600 Partial intestinal obstruction, unspecified as to cause; K50.90 Crohn's disease, unspecified, without complications; I10 Essential (primary) hypertension; H54.7 Unspecified visual loss; E66.9 Obesity, unspecified; K43.9 Ventral hernia without obstruction or gangrene; Z20.822 Contact with and (suspected) exposure to COVID-19; K21.9 Gastro-esophageal reflux disease without esophagitis; J44.9 Chronic obstructive pulmonary disease, unspecified; E87.6 Hypokalemia; E53.8 Deficiency of other specified B group vitamins; Z79.51 Long term (current) use of inhaled steroids; Z79.899 Other long term (current) drug therapy
CPT/HCPCS: 36415; 74177; 80053; 82150; 83690; 85025; 96374; 99285; J2405; J7030 ×2; Q9967; U0002; 80048; 81001; A9270-GY; J3480

== ENCOUNTER 2021-08-07 06:24 | Emergency (ER) | payer MEDICARE, MEDICAID ==
--- NOTE | 2021-08-07 07:14 | EDM.PDOC ---
ED HPI GENERAL MEDICAL PROBLEM - General Chief Complaint: Abdominal Pain Stated Complaint: abdominal pain Time Seen by Provider: 08/07/21 07:00 Source of Information: Reports: Patient History Limitations: Reports: No Limitations - History of Present Illness INITIAL COMMENTS - FREE TEXT/NARRATIVE: pt c/o gen abd pain since 4 am , with nausea and recurrent emesis, last BM was 3 am, denies fever chills or any other associated sx or concerns, has hx of similar pain with bowl obstructions, has Hx of Crohn disease. Abdominal pain Pain Score (Numeric/FACES): 7 - Related Data Allergies Allergy/AdvReac Type Severity Reaction Status Date / Time No Known Allergies Allergy Verified 08/07/21 06:46 Home Meds: Home Meds Albuterol Sulfate [Albuterol Sulfate Hfa] 2 puff IH Q4HR PRN 05/04/21 [History] Betamethasone Valerate 1 applic TP BID PRN 05/04/21 [History] Cyanocobalamin (Vitamin B-12) [Vitamin B-12] 1,000 mcg SL DAILY 05/04/21 [History] Famotidine 20 mg PO BEDTIME 05/04/21 [History] Losartan/Hydrochlorothiazide [Hyzaar 100-25 Tablet] 1 tab PO 1200 05/04/21 [History] Budesonide/Formoterol [Symbicort 80-4.5 MCG] 2 puff IH BID 06/29/21 [History] Cholecalciferol (Vitamin D3) [Vitamin D3] 1,000 units CHEW DAILY 06/29/21 [History] Magnesium Oxide [Magnesium] 400 mg PO DAILY 06/29/21 [History] Multivitamin with Minerals [Multiple Vitamin] 1 tab PO 1200 06/29/21 [History] Potassium Chloride 20 meq PO BEDTIME 06/29/21 [History] Past Medical History HEENT History: Reports: Impaired Vision Cardiovascular History: Reports: Hypertension Respiratory History: Reports: Asthma, COPD Gastrointestinal History: Reports: GERD, Inflammatory Bowel Disease, Other (See Below) Other Gastrointestinal History: Ventral hernia Genitourinary History: Reports: UTI, Recurrent Endocrine/Metabolic History: Reports: Hypokalemia, Obesity/BMI 30+ Hematologic History: Reports: B12 Deficiency - Past Surgical History GI Surgical History: Reports: Other (See Below) Other GI Surgeries/Procedures: removal of bowel 1993, ventral hernia Social & Family History - Family History Family Medical History: No Pertinent Family History - Caffeine Use Caffeine Use: Reports: None ED ROS GENERAL - Review of Systems Review Of Systems: See Below Constitutional: Reports: No Symptoms Respiratory: Reports: No Symptoms Cardiovascular: Reports: No Symptoms GI/Abdominal: Reports: Abdominal Pain, Anorexia, Nausea, Vomiting. Denies: Black Stool, Bloody Stool, Diarrhea, Hematemesis, Melena : Reports: No Symptoms Musculoskeletal: Reports: No Symptoms Skin: Reports: No Symptoms Neurological: Reports: No Symptoms ED EXAM, GENERAL - Physical Exam Exam: See Below Exam Limited By: No Limitations General Appearance: Alert, Moderate Distress Eye Exam: Bilateral Eye: Normal Inspection Nose: Normal Inspection Throat/Mouth: Other (dry MM) Head: Atraumatic, Normocephalic Neck: Normal Inspection, Supple, Non-Tender Respiratory/Chest: No Respiratory Distress, Lungs Clear, Normal Breath Sounds Cardiovascular: Normal Peripheral Pulses, Regular Rate, Rhythm GI/Abdominal: Normal Bowel Sounds, Distended, Abnormal Bowel Sounds, Other (lg ventral nontender abd hernia noted. ). No: Guarding, Tender Back Exam: Normal Inspection, Full Range of Motion Extremities: Normal Inspection, Normal Range of Motion, Normal Capillary Refill Neurological: Alert, CN II-XII Intact, No Motor/Sensory Deficits Psychiatric: Normal Affect Skin Exam: Warm, Dry Course - Vital Signs Text/Narrative:: abd xray and CT shows no acute findings , labs shows elevated WBCs and UTI, pt is afebrile and resting comfortably here after fluids , 4 morphin and 4 zofran, she had several BMs and no recurrent emesis here . pt has UTI and there are no signs of cute abd on exam or findings on test results to suggest that. she is stable for discharge home on cipro x 7 days with close f/u. w PCP in 2 days for re-check. Last Recorded V/S: Last Vital Signs Temp 36.1 C 08/07/21 08:34 Pulse 97 08/07/21 08:34 Resp 15 08/07/21 08:34 BP 115/81 08/07/21 08:34 Pulse Ox 97 08/07/21 08:34 - Orders/Labs/Meds Orders: Active Orders 24 hr Category Date Time Status Abdomen 2V AP Flat Upright [CR] Stat Exams 08/07/21 07:16 Taken Abdomen Pelvis w Cont [CT] Stat Exams 08/07/21 08:52 Taken Sodium Chloride 0.9% [Saline Flush] Med 08/07/21 07:25 Active 10 ml FLUSH ASDIRECTED PRN Medication Orders Sodium Chloride (Sodium Chloride 0.9% 10 Ml Syringe) 10 ml FLUSH ASDIRECTED PRN PRN Reason: Keep Vein Open Last Admin: 08/07/21 07:45 Dose: 10 ml Documented by: SAMINA Labs: Laboratory Tests 08/07/21 08/07/21 08/07/21 Range/Units 06:45 06:45 06:45 WBC 16.7 H (3.0-10.3) x10-3/uL RBC 5.05 (3.60-5.20) x10(6)uL Hgb 14.8 D (11.4-15.5) g/dL Hct 44.1 (34.2-48.2) % MCV 87.2 (76.7-100.5) fL MCH 29.2 (23.9-33.9) pg MCHC 33.5 (31.9-34.8) g/dL RDW 14.5 (12.3-16.5) % Plt Count 225 (151-488) x10(3)uL MPV 8.9 (7.1-12.4) fL Add Manual Diff Yes Neutrophils % (Manual) 90 H (46-82) % Band Neutrophils % 4 (0-6) % Lymphocytes % (Manual) 2 L (13-37) % Monocytes % (Manual) 4 (4-12) % Sodium 137 (135-145) mmol/L Potassium 3.2 L (3.5-5.3) mmol/L Chloride 97 L D (100-110) mmol/L Carbon Dioxide 25 (21-32) mmol/L BUN 22 H (7-18) mg/dL Creatinine 0.8 (0.55-1.02) mg/dL Est Cr Clr Drug Dosing 56.45 mL/min Estimated GFR (MDRD) > 60 (>60) BUN/Creatinine Ratio 27.5 H (9-20) Glucose 213 H D (80-116) mg/dL Calcium 10.1 D (8.6-10.2) mg/dL Total Bilirubin 1.0 (0.1-1.3) mg/dL AST 18 (5-25) IU/L ALT 28 (12-36) U/L Alkaline Phosphatase 105 (56-112) IU/L Total Protein 8.1 H (6.0-8.0) g/dL Albumin 4.1 (3.2-4.6) g/dL Globulin 4.0 g/dL Albumin/Globulin Ratio 1.0 Amylase 58 (25-115) U/L Lipase 109 (73-393) U/L Urine Color (YELLOW) Urine Appearance (CLEAR) Urine pH (5.0-6.5) Ur Specific [place] (1.010-1.025) Urine Protein (NEGATIVE) mg/dL Urine Glucose (UA) (NORMAL) mg/dL Urine Ketones (NEGATIVE) mg/dL Urine Occult Blood (NEGATIVE) Urine Nitrite (NEGATIVE) Urine Bilirubin (NEGATIVE) Urine Urobilinogen (NEGATIVE) mg/dL Ur Leukocyte Esterase (NEGATIVE) Urine RBC (0-5) Urine WBC (0-5) Ur Squamous Epith Cells (NS,R,O) Amorphous Sediment Urine Bacteria (NS) 08/07/21 Range/Units 08:08 WBC (3.0-10.3) x10-3/uL RBC (3.60-5.20) x10(6)uL Hgb (11.4-15.5) g/dL Hct (34.2-48.2) % MCV (76.7-100.5) fL MCH (23.9-33.9) pg MCHC (31.9-34.8) g/dL RDW (12.3-16.5) % Plt Count (151-488) x10(3)uL MPV (7.1-12.4) fL Add Manual Diff Neutrophils % (Manual) (46-82) % Band Neutrophils % (0-6) % Lymphocytes % (Manual) (13-37) % Monocytes % (Manual) (4-12) % Sodium (135-145) mmol/L Potassium (3.5-5.3) mmol/L Chloride (100-110) mmol/L Carbon Dioxide (21-32) mmol/L BUN (7-18) mg/dL Creatinine (0.55-1.02) mg/dL Est Cr Clr Drug Dosing mL/min Estimated GFR (MDRD) (>60) BUN/Creatinine Ratio (9-20) Glucose (80-116) mg/dL Calcium (8.6-10.2) mg/dL Total Bilirubin (0.1-1.3) mg/dL AST (5-25) IU/L ALT (12-36) U/L Alkaline Phosphatase (56-112) IU/L Total Protein (6.0-8.0) g/dL Albumin (3.2-4.6) g/dL Globulin g/dL Albumin/Globulin Ratio Amylase (25-115) U/L Lipase (73-393) U/L Urine Color Yellow (YELLOW) Urine Appearance Cloudy (CLEAR) Urine pH 7.0 H (5.0-6.5) Ur Specific [place] 1.010 (1.010-1.025) Urine Protein Negative (NEGATIVE) mg/dL Urine Glucose (UA) Normal (NORMAL) mg/dL Urine Ketones 15 H (NEGATIVE) mg/dL Urine Occult Blood Negative (NEGATIVE) Urine Nitrite Negative (NEGATIVE) Urine Bilirubin Small H (NEGATIVE) Urine Urobilinogen Normal (NEGATIVE) mg/dL Ur Leukocyte Esterase Large H (NEGATIVE) Urine RBC 0-5 (0-5) Urine WBC 30-40 H (0-5) Ur Squamous Epith Cells Few H (NS,R,O) Amorphous Sediment Many Urine Bacteria Many H (NS) Meds: Medications Generic Name Dose Route Start Last Admin Trade Name Ihsan PRN Reason Stop Dose Admin Sodium Chloride 10 ml 08/07/21 07:25 08/07/21 07:45 Sodium Chloride 0.9% 10 Ml Syringe FLUSH 10 ml ASDIRECTED PRN Administration Keep Vein Open Discontinued Medications Generic Name Dose Route Start Last Admin Trade Name Ihsan PRN Reason Stop Dose Admin Diatrizoate Meglum/Diatrizoate Sod 30 ml 08/07/21 10:15 08/07/21 10:33 Diatrizoate Meglumine/Diatrizoate Sodium 37% 30 Ml Bottle PO 08/07/21 10:16 30 ml . DIRECTED ONE Administration Sodium Chloride 1,000 mls @ 999 mls/hr 08/07/21 07:22 08/07/21 07:15 Normal Saline IV 08/07/21 08:22 999 mls/hr .BOLUS ONE Administration Iopamidol 75 ml 08/07/21 10:15 08/07/21 10:33 Iopamidol 755 Mg/Ml 75 Ml Bottle IV 08/07/21 10:16 75 ml ASDIRECTED ONE Administration Morphine Sulfate 4 mg 08/07/21 07:16 08/07/21 07:18 Morphine 4 Mg/Ml Vial IVPUSH 08/07/21 07:17 4 mg ONETIME ONE Administration Ondansetron HCl 4 mg 08/07/21 07:16 08/07/21 07:16 Ondansetron 4 Mg/2 Ml Sdv IVPUSH 08/07/21 07:17 4 mg ONETIME ONE Administration Departure - Departure Time of Disposition: 11:09 Disposition: Home, Self-Care 01 Clinical Impression: UTI (urinary tract infection) - Discharge Information Referrals: Pricilla Phipps, [employer] [Primary Care Provider] - Forms: ED Department Discharge Sepsis Event Note (ED) - Evaluation Sepsis Screening Result: No Definite Risk - Focused Exam Vital Signs: Vital Signs Temp Pulse Resp BP Pulse Ox 08/07/21 08:34 36.1 C 97 15 115/81 97 08/07/21 06:26 36.0 C L 85 20 160/105 H 100 - My Orders Last 24 Hours: My Active Orders 08/07/21 07:16 Abdomen 2V AP Flat Upright [CR] Stat 08/07/21 07:25 Sodium Chloride 0.9% [Saline Flush] 10 ml FLUSH ASDIRECTED PRN 08/07/21 08:52 Abdomen Pelvis w Cont [CT] Stat - Assessment/Plan Last 24 Hours: My Active Orders 08/07/21 07:16 Abdomen 2V AP Flat Upright [CR] Stat 08/07/21 07:25 Sodium Chloride 0.9% [Saline Flush] 10 ml FLUSH ASDIRECTED PRN 08/07/21 08:52 Abdomen Pelvis w Cont [CT] Stat
[2021-08-07] MEDS ORDERED: Ondansetron 4 MG/2 ML SDV IVPUSH ONE (07:16)
[2021-08-07] MEDS ORDERED: Morphine 4 MG/ML VIAL IVPUSH ONE (07:16)
[2021-08-07] MEDS ORDERED: Sodium Chloride 0.9% 1,000 ML IV ONE (07:22)
[2021-08-07] MEDS ORDERED: Sodium Chloride 0.9% 10 ML Syringe FLUSH PRN (07:25)
[2021-08-07] MEDS ORDERED: Diatrizoate Meglumine/Diatrizoate Sodium 37% 30 ML Bottle PO ONE (10:15)
[2021-08-07] MEDS ORDERED: Iopamidol 755 Mg/ML 75 ML Bottle IV ONE (10:15)
--- NOTE | 2021-08-09 11:21 | CR ---
ABDOMEN TWO VIEW INDICATION: Abdominal pain, history of small bowel obstruction x2. FINDINGS: Four images of the abdomen in supine and upright projections were obtained 08/07/21 and compared with previous abdomen dated 06/29/21. Multiple calculi are noted in the gallbladder. Air fluid levels are noted in dilated loops of small bowel compatible with a small bowel obstruction. Clips compatible with previous surgeries with anastomoses are noted. No definite organomegaly or mass lesions were identified. No nonvascular pathologic calcifications were otherwise suggested. IMPRESSION: 1. Findings felt to be most compatible with a mid small bowel obstruction, although localized paralytic ileus could also be present, but is much less likely. 2. Cholelithiasis. 3. Multiple postsurgical changes. MTDD
== END 2021-08-07 12:35 | disposition home or self-care (01) ==
LOC: FB.ED 06:24
DX: N39.0 Urinary tract infection, site not specified (principal); J44.9 Chronic obstructive pulmonary disease, unspecified; I10 Essential (primary) hypertension; E66.9 Obesity, unspecified; Z68.32 Body mass index [BMI] 32.0-32.9, adult
CPT/HCPCS: 36415; 74019; 74177; 80053; 81001; 82150; 83690; 85025; 96374; 96375; 99284; J2270; J2405; J7030; Q9963; Q9967

== ENCOUNTER 2022-04-28 08:39 | Emergency (ER) | payer MEDICARE, MEDICAID ==
[2022-04-28] MEDS ORDERED: Ondansetron 4 MG Tab.DIS PO ONE (08:40)
[2022-04-28] MEDS ORDERED: Sodium Chloride 0.9% 10 ML Syringe FLUSH PRN (08:41)
[2022-04-28 09:01] LABS: ESTIMATED GFR 80 mL/min (>60)
[2022-04-28] MEDS ORDERED: Acetaminophen 500 MG Tab PO ONE (09:08)
[2022-04-28] MEDS ORDERED: NS + KCl 20mEq/L 1,000 ML IV ONE (09:08)
[2022-04-28] MEDS ORDERED: Hyoscyamine 0.125 MG Tab.SL SL ONE (09:36)
== END 2022-04-28 11:52 | disposition home or self-care (01) ==
LOC: FB.ED 08:39
DX: A08.4 Viral intestinal infection, unspecified (principal); R73.9 Hyperglycemia, unspecified; E87.6 Hypokalemia; I10 Essential (primary) hypertension; J44.9 Chronic obstructive pulmonary disease, unspecified; K21.9 Gastro-esophageal reflux disease without esophagitis; E66.9 Obesity, unspecified; Z79.899 Other long term (current) drug therapy; Z86.16 Personal history of COVID-19; Z68.32 Body mass index [BMI] 32.0-32.9, adult
CPT/HCPCS: 80048; 81001; 87086; 87088; 87186; 96360; 99283; 99284-25; A9270-GY; J3480; J3490; Q0162